=== PATIENT | female | born 1965 | race Caucasian/White ===

== ENCOUNTER 2016-08-10 10:07 | Observation (INO) | payer OTHER ==
[~2016-08-10] VITALS: Ht 169 cm; Wt 54.7 kg
[~2016-08-10 10:07] MED LIST: CLONAZEPAM0.5 MG PO; CYMBALTA60 MG PO; DAILY VALUE1 EACH PO; LISINOPRIL10 MG PO; OXYCODONE HCL5 MG PO; SIMVASTATIN10 MG PO
[2016-08-10 10:46] LABS: HEMATOCRIT 38.3 % (36.0-46.0); MCH 34.3 PG (29.0-34.0); MCHC 33.9 G/DL (30.0-36.0); MCV 101.1 FL (83-99); MEAN PLAT.VOLUME 9.1 uM^3 (9.5-12.4); PLATELET COUNT 340 K/uL (156-360); RBC DIS.WIDTH-SD 55.9 % (39-53); RED BLOOD COUNT 3.79 M/uL (3.80-5.20); WHITE BLOOD COUNT 8.5 K/uL (4.1-10.2)
[2016-08-10 10:55] LABS: CHLORIDE 105 mEq/L (99-109); POTASSIUM 4.3 mEq/L (3.7-5.4); SODIUM 139 mEq/L (136-147)
[2016-08-10 10:57] LABS: GLUCOSE 91 mg/dL (70-99)
[2016-08-10 10:59] LABS: ANION GAP 10 MEQ/L (2-14); TOTAL BILIRUBIN 0.6 mg/dL (0.0-1.0)
[2016-08-10 11:01] LABS: ALKALINE PHOSPHATASE 84 IU/L (3-129); GFR ESTIMATE (CALCULATED) > 59 mL/min/
[2016-08-10 11:02] LABS: UREA NITROGEN (BUN) 7 mg/dL (9-23)
[2016-08-10 11:07] LABS: TROP-I INTERPRETATION NEGATIVE; TROPONIN-I < 0.01 ng/mL (0.0-0.30)
[2016-08-10] MEDS ORDERED: VOLTAREN75 MG PO (11:51)
[2016-08-10] MEDS ORDERED: GABAPENTIN300 MG PO (11:52)
[2016-08-10] MEDS ORDERED: SEROQUEL100 MG PO (11:52)
[2016-08-10] MEDS ORDERED: LO-DOSE ASPIRIN81 M2 PO (11:53)
[2016-08-10] MEDS ORDERED: ADVIL200 MG PO (11:54)
[2016-08-10 12:29] LABS: SERUM ETHYL ALCOHOL < 10 mg/dL
[2016-08-10 14:00] VITALS: BP 129/76
[2016-08-10 14:59] VITALS: BP 129/76
[2016-08-10 17:49] LABS: INFLUENZA A VIRAL ANTIGEN NEGATIVE; INFLUENZA B VIRAL ANTIGEN NEGATIVE
[2016-08-10 17:59] LABS: TROP-I INTERPRETATION NEGATIVE; TROPONIN-I < 0.01 ng/mL (0.0-0.30)
[2016-08-10 19:30] VITALS: BP 104/73
[2016-08-10 23:30] VITALS: BP 135/79
[2016-08-11] LABS: TROP-I INTERPRETATION NEGATIVE; TROPONIN-I < 0.01 ng/mL (0.0-0.30)
[2016-08-11 03:58] VITALS: BP 126/71
[2016-08-11 07:20] VITALS: BP 102/60
[2016-08-11] MEDS ORDERED: ZYRTEC10 M2 PO (11:00)
[2016-08-11] MEDS ORDERED: PERCOCET 5/31 TABLET PO (11:00)
== END 2016-08-11 11:40 | disposition home or self-care (01) ==
LOC: EME 10:07 → EDOF 12:55 → 5WEST 12:55
PROVIDERS: Emergency Medicine; Physician Assistant
DX: R07.89 Other chest pain (principal); J06.9 Acute upper respiratory infection, unspecified; I25.2 Old myocardial infarction; F17.210 Nicotine dependence, cigarettes, uncomplicated; E78.5 Hyperlipidemia, unspecified; I10 Essential (primary) hypertension
CPT/HCPCS: 71020; 80053; 84484; 85027; 87502; 93005; 94640; 94640 76; 99202; 99281; 99285; G0378; G0480; J1644; J2270; J7030

== ENCOUNTER 2016-09-19 06:42 | Observation (INO) | payer OTHER ==
[~2016-09-19] VITALS: Ht 167.6 cm; Wt 55.9 kg
[~2016-09-19 06:42] MED LIST changes: +ADVIL200 MG PO; +GABAPENTIN300 MG PO; +LO-DOSE ASPIRIN81 M2 PO; +PERCOCET 5/31 TABLET PO; +SEROQUEL100 MG PO; +VOLTAREN75 MG PO; +ZYRTEC10 M2 PO
[2016-09-19 07:45] LABS: BASOPHIL COUNT 0.1 K/uL (0-0.1); EOSINOPHIL (%) 1.5 % (0-5); EOSINOPHIL COUNT 0.2 K/uL (0-0.3); HEMATOCRIT 47.3 % (36.0-46.0); IMMATURE GRANULOCYTE (%) 0.3 % (0.0-0.7); INSTRUMENT ABS NEUTROPHIL CT 7.4 K/uL; MCHC 34.5 G/DL (30.0-36.0); MCV 98.7 FL (83-99); MEAN PLAT.VOLUME 9.2 uM^3 (9.5-12.4); MONOCYTE (%) 5.7 % (3-12); MONOCYTE COUNT 0.8 K/uL (0-0.8); NEUTROPHIL (%) 54.9 % (45-76); NEUTROPHIL COUNT 7.4 K/uL (1.8-6.4); PLATELET COUNT 311 K/uL (156-360); RBC DIS.WIDTH-CV 11.8 % (11.8-14.6); RBC DIS.WIDTH-SD 43.2 % (39-53); RED BLOOD COUNT 4.79 M/uL (3.80-5.20); WHITE BLOOD COUNT 13.4 K/uL (4.1-10.2)
[2016-09-19 08:07] LABS: TROP-I INTERPRETATION NEGATIVE; TROPONIN-I < 0.01 ng/mL (0.0-0.30)
[2016-09-19 08:19] LABS: CHLORIDE 109 mEq/L (99-109); POTASSIUM 4.4 mEq/L (3.7-5.4); SODIUM 141 mEq/L (136-147)
[2016-09-19 08:22] LABS: ANION GAP 9 MEQ/L (2-14)
[2016-09-19 08:24] LABS: SERUM ETHYL ALCOHOL 238 mg/dL
[2016-09-19 08:25] LABS: GFR ESTIMATE (CALCULATED) > 59 mL/min/
[2016-09-19 08:26] LABS: UREA NITROGEN (BUN) 10 mg/dL (9-23)
[2016-09-19 08:48] LABS: GLUCOSE 80 mg/dL (70-99)
[2016-09-19] MEDS ORDERED: SEROQUEL50 MG PO (12:58)
[2016-09-19] MEDS ORDERED: NEURONTIN300 MG PO (12:58)
[2016-09-19] MEDS ORDERED: CYMBALTA60 MG PO (12:59)
[2016-09-19 14:13] LABS: MAGNESIUM 2.5 mg/dL (1.3-2.7)
[2016-09-19 16:30] VITALS: BP 157/91
[2016-09-19 19:00] LABS: TROP-I INTERPRETATION NEGATIVE; TROPONIN-I < 0.01 ng/mL (0.0-0.30)
[2016-09-19 19:38] VITALS: BP 138/74
[2016-09-19 23:33] VITALS: BP 122/64
[2016-09-20 01:43] LABS: TROP-I INTERPRETATION NEGATIVE; TROPONIN-I < 0.01 ng/mL (0.0-0.30)
[2016-09-20 03:43] VITALS: BP 134/79
[2016-09-20 06:44] LABS: ANION GAP 8 MEQ/L (2-14); CHLORIDE 112 MEQ/L (99-109); GFR ESTIMATE (CALCULATED) > 59 mL/min/; GLUCOSE 88 mg/dL (70-99); POTASSIUM 4.1 MEQ/L (3.7-5.4); SAMPLE HEMOLYSIS CHECK 0; SAMPLE ICTERIC CHECK 0; SAMPLE LIPEMIA CHECK 0; SODIUM 142 MEQ/L (136-147); UREA NITROGEN (BUN) 19 mg/dL (9-23)
[2016-09-20 06:54] LABS: HEMATOCRIT 42.8 % (36.0-46.0); MCH 33.7 PG (29.0-34.0); MCHC 33.6 G/DL (30.0-36.0); MCV 100.2 FL (83-99); MEAN PLAT.VOLUME 9.6 uM^3 (9.5-12.4); PLATELET COUNT 240 K/uL (156-360); RBC DIS.WIDTH-SD 44.6 % (39-53); RED BLOOD COUNT 4.27 M/uL (3.80-5.20)
[2016-09-20 06:58] LABS: WHITE BLOOD COUNT 7.3 K/uL (4.1-10.2)
[2016-09-20 08:06] VITALS: BP 122/66
[2016-09-20 08:53] LABS: INTERNAL CONTROL VALID? YES
[2016-09-20] MEDS ORDERED: Thiamine,Vitamin B1 PO (09:11)
[2016-09-20] MEDS ORDERED: AUGMENTIN875 MG PO (09:11)
[2016-09-20] MEDS ORDERED: FOLIC ACID1 MG PO (09:11)
[2016-09-20 11:35] VITALS: BP 117/73
[2016-09-20 14:49] VITALS: BP 120/72
== END 2016-09-20 17:30 | disposition home or self-care (01) ==
LOC: EME 06:42 → 4EAST 12:10 → EDOF 13:28 → 4EAST 16:18
PROVIDERS: Emergency Medicine; Internal Medicine
DX: J18.9 Pneumonia, unspecified organism (principal); R94.31 Abnormal electrocardiogram [ECG] [EKG]; R07.89 Other chest pain; F10.220 Alcohol dependence with intoxication, uncomplicated; F32.9 Major depressive disorder, single episode, unspecified; G43.909 Migraine, unspecified, not intractable, without status migrainosus; I10 Essential (primary) hypertension; I25.2 Old myocardial infarction; I44.7 Left bundle-branch block, unspecified; F17.210 Nicotine dependence, cigarettes, uncomplicated; F41.9 Anxiety disorder, unspecified; I25.10 Atherosclerotic heart disease of native coronary artery without angina pectoris; G89.29 Other chronic pain
CPT/HCPCS: 71010; 80048; 83605; 83735; 84484; 85025; 85027; 87040; 87070; 87205; 87449; 93005; 94640; 94640 76; 94760; 99202; 99281; 99285; G0378; G0480; J0456; J0696; J1650; J7030; J7050

== ENCOUNTER 2017-03-20 23:17 | Emergency (ER) | payer OTHER ==
[~2017-03-20] VITALS: Ht 165.1 cm; Wt 52.2 kg
[~2017-03-20 23:17] MED LIST changes: +AUGMENTIN875 MG PO; +FOLIC ACID1 MG PO; +NEURONTIN300 MG PO; +SEROQUEL50 MG PO; +Thiamine,Vitamin B1 PO
[2017-03-21 01:07] LABS: ADD MIUA? NO; BILIRUBIN NEGATIVE; BLOOD NEGATIVE; COLOR COLORLESS ((YELLOW)); GLUCOSE (STRIP) NEGATIVE; KETONES NEGATIVE; LEUKOCYTES NEGATIVE; NITRITE NEGATIVE; PROTEIN (STRIP) NEGATIVE; SPECIFIC GRAVITY 1.004 (1.000-1.030); UCUL ADDED? NO; UROBILINOGEN 0.2 MG/DL (0.2-1.0)
[2017-03-21 01:18] LABS: AMPHETAMINE NEGATIVE (500 ng/mL); BENZODIAZEPINES PRESUMPTIVE POSITIVE (150 ng/mL); COCAINE NEGATIVE (150 ng/mL); METHAMPHETAMINE NEGATIVE (500 ng/mL); OPIATES (MORPHINE) NEGATIVE (100 ng/mL); PHENCYCLIDINE NEGATIVE (25 ng/mL); THC CANNABINOIDS NEGATIVE (50 ng/mL)
[2017-03-21 01:19] LABS: ADD MEDTOX COMMENT Y; BARBITURATES NEGATIVE (200 ng/mL); INTERNAL CONTROLS VALID? YES; METHADONE NEGATIVE (200 ng/mL); OXYCODONE NEGATIVE (100 ng/mL); PROPOXYPHENE NEGATIVE (300 ng/mL); TRICYCLIC ANTIDEPRESSANTS NEGATIVE (300 ng/mL)
[2017-03-21 04:13] LABS: BENZODIAZEPINES, URINE SCREEN POSITIVE (200 ng/mL)
[2017-03-21 05:56] VITALS: BP 148/103
== END 2017-03-21 05:57 | disposition home or self-care (01) ==
LOC: EME 23:17
PROVIDERS: Emergency Medicine
DX: F10.129 Alcohol abuse with intoxication, unspecified (principal); F41.9 Anxiety disorder, unspecified; I25.2 Old myocardial infarction; I10 Essential (primary) hypertension; F32.9 Major depressive disorder, single episode, unspecified; Z88.8 Allergy status to other drugs, medicaments and biological substances; F17.200 Nicotine dependence, unspecified, uncomplicated
CPT/HCPCS: 81003; 84999; 99281; 99283

== ENCOUNTER 2017-06-06 01:39 | Emergency (ER) | payer OTHER ==
[~2017-06-06] VITALS: Ht 167.6 cm; Wt 53.6 kg
[2017-06-06] MEDS ORDERED: ULTRAM50 MG PO (02:56)
[2017-06-06] MEDS ORDERED: DELTASONE20 M1 PO (02:56)
[2017-06-06] MEDS ORDERED: VIBRAMYCIN100 MG PO (02:56)
[2017-06-06 03:38] VITALS: BP 93/54
== END 2017-06-06 03:40 | disposition home or self-care (01) ==
LOC: EME 01:39
DX: J18.9 Pneumonia, unspecified organism (principal); I10 Essential (primary) hypertension; I25.2 Old myocardial infarction; F41.9 Anxiety disorder, unspecified; F32.9 Major depressive disorder, single episode, unspecified; F17.200 Nicotine dependence, unspecified, uncomplicated; Z90.49 Acquired absence of other specified parts of digestive tract; Z88.6 Allergy status to analgesic agent; Z88.8 Allergy status to other drugs, medicaments and biological substances
CPT/HCPCS: 71046; 99281; 99284

== ENCOUNTER 2017-08-17 19:16 | Emergency (ER) | payer OTHER ==
[~2017-08-17] VITALS: Ht 165.1 cm
[~2017-08-17 19:16] MED LIST changes: +DELTASONE20 M1 PO; +ULTRAM50 MG PO; +VIBRAMYCIN100 MG PO
[2017-08-18 05:24] VITALS: BP 140/90
== END 2017-08-18 05:25 | disposition home or self-care (01) ==
LOC: EME 19:16
DX: F10.129 Alcohol abuse with intoxication, unspecified (principal); I10 Essential (primary) hypertension; I25.2 Old myocardial infarction; F17.200 Nicotine dependence, unspecified, uncomplicated
CPT/HCPCS: 99281; 99284; J1630

== ENCOUNTER 2017-08-31 16:31 | Inpatient (IN) | payer OTHER ==
[~2017-08-31] VITALS: Ht 165.1 cm; Wt 50.9 kg
[2017-08-31 17:18] LABS: HEMATOCRIT 42.2 % (36.0-46.0); HEMOGLOBIN 15.3 G/DL (11.9-15.5); MCH 33.8 PG (29.0-34.0); MCHC 36.3 G/DL (30.0-36.0); MCV 93.4 FL (83-99); PLATELET COUNT 146 K/uL (156-360); RBC DIS.WIDTH-CV 12.7 % (11.8-14.6); RBC DIS.WIDTH-SD 43.2 % (39-53); RED BLOOD COUNT 4.52 M/uL (3.80-5.20); WHITE BLOOD COUNT 5.2 K/uL (4.1-10.2)
[2017-08-31 17:29] LABS: CHLORIDE 106 mEq/L (99-109); POTASSIUM 3.7 mEq/L (3.7-5.4); SODIUM 143 mEq/L (136-147)
[2017-08-31 17:31] LABS: GLUCOSE 85 mg/dL (70-99)
[2017-08-31 17:34] LABS: SERUM ETHYL ALCOHOL 355 mg/dL
[2017-08-31 17:35] LABS: CREATININE 0.7 mg/dL (0.6-1.3); GFR ESTIMATE (CALCULATED) > 59 mL/min/
[2017-08-31 17:37] LABS: UREA NITROGEN (BUN) 8 mg/dL (9-23)
[2017-08-31 17:38] LABS: SALICYLATE < 5.0 MG/DL (15-30)
[2017-08-31 17:39] LABS: ACETAMINOPHEN (TYLENOL) < 10 mcg/mL (10-30)
[2017-08-31 17:41] LABS: AMPHETAMINE NEGATIVE (500 ng/mL); BARBITURATES NEGATIVE (200 ng/mL); BENZODIAZEPINES NEGATIVE (150 ng/mL); BUPRENORPHINE NEGATIVE (10 ng/mL); COCAINE NEGATIVE (150 ng/mL); METHADONE NEGATIVE (200 ng/mL); METHAMPHETAMINE NEGATIVE (500 ng/mL); OPIATES (MORPHINE) NEGATIVE (100 ng/mL); OXYCODONE NEGATIVE (100 ng/mL); PHENCYCLIDINE NEGATIVE (25 ng/mL); PROPOXYPHENE NEGATIVE (300 ng/mL); THC CANNABINOIDS NEGATIVE (50 ng/mL); TRICYCLIC ANTIDEPRESSANTS NEGATIVE (300 ng/mL)
[2017-09-01] VITALS (7 sets, daily range): BP systolic 125–174; BP diastolic 85–102
[2017-09-01] MEDS ORDERED: CYMBALTA60 MG PO (07:44)
[2017-09-02 04:25] VITALS: BP 133/84
[2017-09-02 08:23] VITALS: BP 128/83
[2017-09-02 16:19] VITALS: BP 137/82
[2017-09-03 09:32] VITALS: BP 130/79
[2017-09-03 16:10] VITALS: BP 142/96
[2017-09-04 09:00] VITALS: BP 120/75
[2017-09-04 16:04] VITALS: BP 158/67
[2017-09-05 07:44] VITALS: BP 108/65
[2017-09-05 10:41] VITALS: BP 132/89
[2017-09-05 15:22] VITALS: BP 114/61
[2017-09-06 07:52] VITALS: BP 120/78
[2017-09-06 16:10] VITALS: BP 153/99
[2017-09-06 19:13] VITALS: BP 134/68
[2017-09-07 07:36] VITALS: BP 143/71
[2017-09-07] MEDS ORDERED: ATARAX,VISTARIL50 MG PO (09:16)
== END 2017-09-07 11:02 | disposition other institution (70) | DRG 880 ==
LOC: EME 16:31 → 1WEST 09-01 04:13 → EDOF 09-01 04:13 → ENRESERV 09-01 05:07 → 1WEST 09-01 05:45
PROVIDERS: Emergency Medicine
DX: F41.8 Other specified anxiety disorders (principal); R45.851 Suicidal ideations; Y90.8 Blood alcohol level of 240 mg/100 ml or more; Z81.8 Family history of other mental and behavioral disorders; F10.20 Alcohol dependence, uncomplicated; Z88.6 Allergy status to analgesic agent; Z88.8 Allergy status to other drugs, medicaments and biological substances; S00.83XA Contusion of other part of head, initial encounter; I10 Essential (primary) hypertension; I25.2 Old myocardial infarction; F17.200 Nicotine dependence, unspecified, uncomplicated
CPT/HCPCS: 70450; 71046; 80048; 85027; 90837; 97150 GO; 97165 GO; 99281; 99285; G0480; J2060; Q0177

== ENCOUNTER 2017-11-04 11:51 | Emergency (ER) | payer OTHER ==
[~2017-11-04] VITALS: Ht 167.6 cm; Wt 56.7 kg
[~2017-11-04 11:51] MED LIST changes: +ATARAX,VISTARIL50 MG PO
[2017-11-04] MEDS ORDERED: SIMVASTATIN10 MG PO (13:32)
[2017-11-04] MEDS ORDERED: VENTOLIN HFA18 GM IH (13:32)
[2017-11-04] MEDS ORDERED: ATARAX,VISTARIL50 MG PO (13:32)
[2017-11-04] MEDS ORDERED: CYMBALTA60 MG PO (13:32)
[2017-11-04] MEDS ORDERED: SEROQUEL50 MG PO (13:32)
[2017-11-04] MEDS ORDERED: TUSSIN100 MG/5 M PO (13:32)
[2017-11-04] MEDS ORDERED: GABAPENTIN300 MG PO (13:32)
[2017-11-04] MEDS ORDERED: PRINIVIL10 MG PO (13:32)
[2017-11-04] MEDS ORDERED: ZYRTEC10 M3 PO (13:32)
[2017-11-04 13:43] VITALS: BP 162/87
== END 2017-11-04 13:45 | disposition home or self-care (01) ==
LOC: EME 11:51
DX: Z76.0 Encounter for issue of repeat prescription (principal); I10 Essential (primary) hypertension; R09.89 Other specified symptoms and signs involving the circulatory and respiratory systems; F32.9 Major depressive disorder, single episode, unspecified; F17.200 Nicotine dependence, unspecified, uncomplicated; G43.909 Migraine, unspecified, not intractable, without status migrainosus; I25.2 Old myocardial infarction; F41.9 Anxiety disorder, unspecified; Z90.49 Acquired absence of other specified parts of digestive tract; Z87.19 Personal history of other diseases of the digestive system; Z88.6 Allergy status to analgesic agent; Z88.8 Allergy status to other drugs, medicaments and biological substances
CPT/HCPCS: 93005; 99281; 99283